=== PATIENT | male | born 1975 | race Caucasian/White ===

== ENCOUNTER 2023-03-05 12:10 | Emergency (ER) | payer OTHER, SELFPAY ==
[2023-03-05 12:27] VITALS: BP 151/96; PULSE 98; RESP 18; TEMP 37; O2SAT 97
--- NOTE | 2023-03-05 12:41 | ED.GENADULT ---
HPI - General Adult General Chief complaint: Upper Respiratory Infection Stated complaint: sore throat Source: patient Mode of arrival: ambulatory Limitations: no limitations History of Present Illness HPI narrative: Patient presents for evaluation of sore throat for last 1-2 days. He indicates a week and half ago his daughter was evaluated for sore throat and had a negative strep screen with a subsequent negative throat culture. She continued to have fever and was seen at assistant inventory manager's office. Rapid strep again was negative. They wanted [facility] and had blood work to rule out mono, which was negative. The then received a phone call from the 2nd throat culture which was positive. She was placed on antibiotics. Patient reports a headache and some discomfort in his upper extremities. He denies any chills, nausea, vomiting, diarrhea, cough, shortness of breath. he took some [id number] cold medication. He does not smoke. Related Data Allergies Allergy/AdvReac Type Severity Reaction Status Date / Time No Known Allergies Allergy Verified 03/05/23 12:13 Review of Systems Review of Systems: CONSTITUTIONAL: Denies fever, chills, or sweats. EYES: Denies visual changes, redness, or discharge. ENT: Reports sore throat. Denies rhinorrhea, congestion, or otalgia. CARDIOVASCULAR: Denies chest pain, palpitations, or edema. RESPIRATORY: Denies cough or dyspnea. GASTROINTESTINAL: Denies abdominal pain, nausea, vomiting, or diarrhea. GENITOURINARY: Denies dysuria or hematuria. SKIN: Denies rash or itching. MUSCULOSKELETAL: Reports some pain in bilateral upper extremities. Denies back pain NEUROLOGIC: Reports headache. Denies numbness, dizziness, or weakness. PSYCHIATRIC: Denies anxiety or depression. [facility] Past Medical History Medical History No pertinent past medical history Surgical History Surgical History No pertinent past surgical history Family History Family History Mother Family history non-contributory Social History Social History Smoking status: Never smoker Living arrangements: with family Gender identity (if verbalized by the patient): Male Sexual Orientation (if Verbalized by the Patient): Straight or Heterosexual Spiritual care concerns: No Exam Narrative: GENERAL: Well-appearing, well-nourished, and in no acute distress. HEAD: Normocephalic, atraumatic. EYES: PERRLA and EOMI. ENT: Nares clear, no rhinorrhea or epistaxis. Mucous membranes moist. posterior pharyngeal erythema without exudate. Uvula is midline. Bilateral TMs pearly limon nonbulging NECK: Supple. No adenopathy or masses. No carotid bruits or JVD CHEST: Clear to auscultation. No respiratory distress. No wheezes rales or rhonchi HEART: Regular rate and rhythm. No murmur heard. Normal peripheral pulses. ABDOMEN: Soft, nontender, nondistended, normal active bowel sounds. EXTREMITIES: Normal range of motion. No edema. SKIN: Warm, dry, no rash. NEURO: No focal deficits. Alert and oriented x3. PSYCH: Normal mood and affect. Course Course Emergency Course: This is a 47-year-old male who presented for evaluation sick symptoms following a strep exposure. Influenza and COVID negative. Strep was negative Through shared decision making, we opted to treat patient, due to recent exposure. Follow-up with primary provider. Go to the ER for worsening symptoms. Patient in agreement with plan of care. Level of Care: Express Care Visit Vital Signs Vital signs: Vital Signs Temperature 37.0 C 03/05/23 12:27 Pulse Rate 98 03/05/23 12:27 Respiratory Rate 18 03/05/23 12:27 Blood Pressure 151/96 H 03/05/23 12:27 Pulse Oximetry 97 03/05/23 12:27 Oxygen Delivery
== END 2023-03-05 13:07 | disposition home or self-care (01) ==
PROVIDERS: Emergency Provider Nurse Practitioner; PCP Family Medicine
DX: J02.9 Acute pharyngitis, unspecified (principal); Z20.818 Contact with and (suspected) exposure to other bacterial communicable diseases; Z20.828 Contact with and (suspected) exposure to other viral communicable diseases
CPT/HCPCS: 87081; 87426; 87804; 87880; 99213; C9803; G0463